=== PATIENT | female | born 1945 ===

== ENCOUNTER 2020-07-03 19:00 | Outpatient (CLI) | payer MEDICARE | END 2020-07-03 19:01 | disposition home or self-care (01) | LOC: SLEEPLAB 19:00 | PROVIDERS: ATTEND Internal Medicine Pulmonary Disease | DX: G47.52 REM sleep behavior disorder (principal); G31.84 Mild cognitive impairment of uncertain or unknown etiology; G47.10 Hypersomnia, unspecified; G47.00 Insomnia, unspecified; I49.3 Ventricular premature depolarization | CPT/HCPCS: 95810 ==